=== PATIENT | female | born 1960 | race Caucasian/White ===

== ENCOUNTER 2021-04-25 11:47 | Emergency (ER) | payer MEDICAID ==
[~2021-04-25] VITALS: Ht 160 cm; Wt 57.3 kg
[2021-04-25 12:22] VITALS: BP 146/81
--- NOTE | 2021-04-25 14:53 | NUR ---
Pt escorted to RAP area #1. Provider is present.
[2021-04-25] MEDS ORDERED: normal saline 1000ML IV soln IVB ONE (15:05)
[2021-04-25] MEDS ORDERED: ondansetron/PF 4mg/2ml inj IV ONE (15:05)
[2021-04-25] MEDS ORDERED: morphine 2 MG/ML inj. syringe IV ONE (15:05)
[2021-04-25] MEDS ORDERED: AMOX-580 PO (15:50)
[2021-04-25] MEDS ORDERED: BUPR150T8 PO (15:50)
[2021-04-25] MEDS ORDERED: VENL150T3 PO (15:50)
[2021-04-25] MEDS ORDERED: LEVO25TA2 PO (15:50)
[2021-04-25 15:57] LABS: BASOPHILS # (AUTO) 0.1 X10'3 (0-0.2); BASOPHILS % (AUTO) 0.6 % (0-1); EOSINOPHILS % (AUTO) 0.1 % (0-6); HEMATOCRIT 39.9 % (35.0-45.0); HEMOGLOBIN 13.7 g/dl (12.0-16.0); LYMPHOCYTES # (AUTO) 0.8 X10'3 (1.1-4.8); LYMPHOCYTES % (AUTO) 8.7 % (21-51); MEAN CORPUSCULAR HEMOGLOBIN 31.3 PG (27.0-31.0); MEAN CORPUSCULAR HGB CONC 34.4 g/dL (33.0-36.5); MEAN PLATELET VOLUME 9.4 FL (7.4-10.4); MONOCYTES # (AUTO) 0.4 X10'3 (0-0.9); MONOCYTES % (AUTO) 4.3 % (2-12); NEUTROPHILS # (AUTO) 8.3 X10'3 (1.8-7.7); NEUTROPHILS % (AUTO) 86.3 % (42-75); PLATELET COUNT 272 X10'3 (140-440); RED BLOOD COUNT 4.39 X10'6 (4.20-5.60); WHITE BLOOD COUNT 9.7 X10'3 (4.5-11.0)
[2021-04-25 16:15] LABS: ALANINE AMINOTRANSFERASE 32 U/L (12-78); ALBUMIN 3.8 G/DL (3.4-5.0); ALBUMIN/GLOBULIN RATIO 0.9 (1.1-1.5); ALKALINE PHOSPHATASE 197 IU/L (46-116); ANION GAP 12 (8-16); ASPARTATE AMINO TRANSFERASE 29 U/L (10-37); BILIRUBIN,TOTAL 0.4 MG/DL (0.1-1.0); BLOOD UREA NITROGEN 8 MG/DL (7-18); C-REACTIVE PROTEIN 0.55 MG/DL (0.0-0.5); CALCIUM 8.9 MG/DL (8.5-10.1); CHLORIDE 101 MMOL/L (99-107); GLUCOSE 102 MG/DL (70-104); POTASSIUM 4.3 MMOL/L (3.5-5.1); SODIUM 136 MMOL/L (135-145); TOTAL CARBON DIOXIDE 22.7 MMOL/L (24-32); TOTAL PROTEIN 7.9 G/DL (6.4-8.2); eGFR 74 ML/MIN
[2021-04-25] MEDS ORDERED: proCHLORperazine 10 MG/2 ml inj IV ONE (16:45)
[2021-04-25] MEDS ORDERED: diphenhydrAMINE 50 mg/ml inj IV ONE (16:45)
[2021-04-25] MEDS ORDERED: ketorolac trometh. 30mg/ml inj. IV ONE (16:50)
[2021-04-25] MEDS ORDERED: IBUP-1985 PO (17:03)
[2021-04-25] MEDS ORDERED: ACET325T59 PO (17:03)
[2021-04-25] MEDS ORDERED: ONDA8TAB13 PO (17:03)
--- NOTE | 2021-04-25 18:10 | NUR ---
Pt given and understands d/c instructions. IV d/c'd, catheter was intact. Ambulatory with a steady gait.
== END 2021-04-25 18:10 | disposition home or self-care (01) ==
LOC: ER 11:51
DX: R51.9 Headache, unspecified (principal); R07.89 Other chest pain; R11.0 Nausea; R06.02 Shortness of breath; Z79.2 Long term (current) use of antibiotics; Z79.899 Other long term (current) drug therapy
CPT/HCPCS: 36415; 70450; 80053; 84145; 85025; 86140; 96374; 96375; 99284; J0780; J1200; J1885; J2270; J2405; J7030

== ENCOUNTER 2021-04-27 06:04 | Emergency (ER) | payer MEDICAID ==
[~2021-04-27] VITALS: Ht 162.6 cm; Wt 56.8 kg
[~2021-04-27 06:04] MED LIST: ACET325T59 PO; AMOX-580 PO; BUPR150T8 PO; IBUP-1985 PO; LEVO25TA2 PO; ONDA8TAB13 PO; VENL150T3 PO
[2021-04-27] MEDS ORDERED: acetaminophen 325mg tablet PO ONE (06:40)
[2021-04-27] MEDS ORDERED: proCHLORperazine 10 MG/2 ml inj IV ONE (06:40)
[2021-04-27] MEDS ORDERED: SUMAtriptan succ. 6 MG/0.5ml vial SQ ONE (06:40)
[2021-04-27] MEDS ORDERED: normal saline 1000ml 1,000 ML IV ONE (06:40)
[2021-04-27] MEDS ORDERED: ketorolac tromethamine 15mg/ml inj. IV ONE (06:45)
[2021-04-27] MEDS ORDERED: iohexol 350MG/ML 100ml bottle IV ONE (07:08)
--- NOTE | 2021-04-27 07:37 | NUR ---
pt to ct.
[2021-04-27 07:58] VITALS: BP 156/79
[2021-04-27 08:20] LABS: BASOPHILS % (AUTO) 0.4 % (0-1); EOSINOPHILS % (AUTO) 0.1 % (0-6); HEMOGLOBIN 11.9 g/dl (12.0-16.0); LYMPHOCYTES # (AUTO) 0.7 X10'3 (1.1-4.8); LYMPHOCYTES % (AUTO) 6.8 % (21-51); MEAN CORPUSCULAR HEMOGLOBIN 31.1 PG (27.0-31.0); MEAN CORPUSCULAR VOLUME 91.5 FL (78-98); MEAN PLATELET VOLUME 8.8 FL (7.4-10.4); MONOCYTES # (AUTO) 0.8 X10'3 (0-0.9); MONOCYTES % (AUTO) 7.9 % (2-12); NEUTROPHILS # (AUTO) 8.9 X10'3 (1.8-7.7); NEUTROPHILS % (AUTO) 84.8 % (42-75); PLATELET COUNT 227 X10'3 (140-440); RED BLOOD COUNT 3.83 X10'6 (4.20-5.60); RED CELL DISTRIBUTION WIDTH 13.2 % (11.5-14.5); WHITE BLOOD COUNT 10.5 X10'3 (4.5-11.0)
[2021-04-27 08:27] LABS: CLARITY,URINE SLIGHTLY CLOUDY (Clear); GLUCOSE, URINE NEGATIVE (Neg); KETONES,URINE 40 mg/dl (Neg); LEUKOCYTE ESTERASE ,URINE NEGATIVE (Neg); NITRITES, URINE NEGATIVE (Neg); OCCULT BLOOD,URINE TRACE-INTACT (Neg); PH,URINE 6.5 (4.8-8.0); PROTEIN,URINE NEGATIVE (Neg); UROBILINOGEN,URINE 0.2 E.U/dL (0.2-1.0)
[2021-04-27 08:38] LABS: ALANINE AMINOTRANSFERASE 28 U/L (12-78); ALKALINE PHOSPHATASE 168 IU/L (46-116); ANION GAP 14 (8-16); ASPARTATE AMINO TRANSFERASE 25 U/L (10-37); BILIRUBIN,TOTAL 0.4 MG/DL (0.1-1.0); BLOOD UREA NITROGEN 11 MG/DL (7-18); BUN/CREATININE RATIO 13.1 (6.6-38.0); CALCIUM 7.7 MG/DL (8.5-10.1); CHLORIDE 100 MMOL/L (99-107); CREATININE 0.84 MG/DL (0.40-0.90); ETHANOL < 0.010 GM/DL (0.0-0.010); GLUCOSE 107 MG/DL (70-104); POTASSIUM 3.4 MMOL/L (3.5-5.1); SODIUM 133 MMOL/L (135-145); TOTAL CARBON DIOXIDE 18.6 MMOL/L (24-32); eGFR 70 ML/MIN
[2021-04-27 08:39] LABS: URINE AMPHETAMINE SCREEN NEGATIVE (Neg); URINE BARBITUATE SCREEN NEGATIVE (Neg); URINE BENZODIAZEPINES SCREEN NEGATIVE (Neg); URINE CANNABINOID SCREEN NEGATIVE (Neg); URINE COCAINE SCREEN NEGATIVE (Neg); URINE METHADONE SCREEN NEGATIVE (Neg); URINE OPIATE SCREEN NEGATIVE (Neg); URINE PHENCYCLIDINE SCREEN NEGATIVE (Neg)
[2021-04-27 08:44] LABS: COLOR,URINE STRAW (Yellow); UA COLLECTION TYPE CLN CATCH MIDSTREAM
[2021-04-27 08:46] LABS: MUCUS STRANDS FEW /LPF (Neg); SQUAMOUS EPITHELIAL CELL,UR MODERATE /LPF (FEW)
[2021-04-27 08:47] LABS: BACTERIA,URINE FEW /HPF (Neg); RBC,URINE 0-2 /HPF (0-2); WBC,URINE 0-4 /HPF (0-4)
[2021-04-27] MEDS ORDERED: LORazepam 2 mg/ml vial IV ONE (08:50)
[2021-04-27] MEDS ORDERED: METO-292 PO (09:47)
[2021-04-27 09:51] LABS: PLATELET ESTIMATE NORMAL; TOTAL CELLS COUNTED 100
== END 2021-04-27 10:14 | disposition home or self-care (01) ==
LOC: ER 06:05
DX: R51.9 Headache, unspecified (principal); F41.9 Anxiety disorder, unspecified; Z79.2 Long term (current) use of antibiotics; Z79.899 Other long term (current) drug therapy
CPT/HCPCS: 36415; 70496; 80053; 80305; 80320; 81001; 85007; 85025; 85651; 96361; 96372; 96374; 96375; 99285; J0780; J2060; J3030; J7030; Q9967

== ENCOUNTER 2021-04-28 11:16 | Emergency (ER) | payer MEDICAID ==
[~2021-04-28] VITALS: Ht 162.6 cm; Wt 56.8 kg
[~2021-04-28 11:16] MED LIST changes: +METO-292 PO
[2021-04-28 13:42] LABS: BASOPHILS % (AUTO) 0.3 % (0-1); EOSINOPHILS % (AUTO) 0.1 % (0-6); HEMATOCRIT 36.8 % (35.0-45.0); HEMOGLOBIN 12.5 g/dl (12.0-16.0); LYMPHOCYTES # (AUTO) 0.8 X10'3 (1.1-4.8); LYMPHOCYTES % (AUTO) 6.9 % (21-51); MEAN CORPUSCULAR HEMOGLOBIN 30.6 PG (27.0-31.0); MEAN CORPUSCULAR HGB CONC 33.9 g/dL (33.0-36.5); MEAN CORPUSCULAR VOLUME 90.3 FL (78-98); MONOCYTES # (AUTO) 0.9 X10'3 (0-0.9); NEUTROPHILS # (AUTO) 10.4 X10'3 (1.8-7.7); NEUTROPHILS % (AUTO) 85.7 % (42-75); PLATELET COUNT 282 X10'3 (140-440); RED BLOOD COUNT 4.08 X10'6 (4.20-5.60); WHITE BLOOD COUNT 12.1 X10'3 (4.5-11.0)
[2021-04-28 13:52] LABS: ALANINE AMINOTRANSFERASE 31 U/L (12-78); ALBUMIN 3.6 G/DL (3.4-5.0); ALKALINE PHOSPHATASE 212 IU/L (46-116); ANION GAP 13 (8-16); ASPARTATE AMINO TRANSFERASE 25 U/L (10-37); BILIRUBIN,TOTAL 0.5 MG/DL (0.1-1.0); BLOOD UREA NITROGEN 8 MG/DL (7-18); BUN/CREATININE RATIO 10.8 (6.6-38.0); CALCIUM 8.4 MG/DL (8.5-10.1); CHLORIDE 91 MMOL/L (99-107); CREATININE 0.74 MG/DL (0.40-0.90); ETHANOL < 0.010 GM/DL (0.0-0.010); GLUCOSE 108 MG/DL (70-104); SODIUM 126 MMOL/L (135-145); TOTAL CARBON DIOXIDE 22.3 MMOL/L (24-32); TOTAL PROTEIN 7.2 G/DL (6.4-8.2); eGFR 81 ML/MIN
[2021-04-28 13:56] LABS: POTASSIUM 2.9 MMOL/L (3.5-5.1)
[2021-04-28] MEDS ORDERED: CefTRIAXone 2gm/D5W 50ml BAG 50 ML IV ONE (14:20)
[2021-04-28] MEDS ORDERED: ampicillin inj 2 GM in normal saline 100ml IV soln 100 ML IV ONE (14:20)
[2021-04-28] MEDS ORDERED: dexamethasone sod phosphate 10mg/ml inj IV STA (14:20)
[2021-04-28] MEDS ORDERED: acetaminophen 325mg tablet PO ONE ×2 (14:30→22:25)
[2021-04-28 14:32] LABS: GLUCOSE,CSF 32 MG/DL (40-75); TOTAL PROTEIN,CSF 45 MG/DL (15-45)
[2021-04-28] MEDS ORDERED: potassium Cl 10 mEq/100mL bag IV ONE (14:45)
[2021-04-28] MEDS ORDERED: normal saline 1000ML IV soln IVB ONE (14:45)
[2021-04-28 15:18] LABS: CSF SUPERNATANT COLOR COLORLESS
[2021-04-28 15:19] LABS: CSF RBC 0 /CU MM (0); CSF VOLUME 9.5 ML; TUBE# COUNTED 1
[2021-04-28 15:22] LABS: APPEARANCE,CSF HAZY; CSF RBC 0 /CU MM (0); CSF SUPERNATANT COLOR COLORLESS; CSF VOLUME 9.5 ML; TUBE# COUNTED 4
[2021-04-28 15:25] LABS: CSF WBC CT 158 /CU MM (0-5)
[2021-04-28 15:26] LABS: APPEARANCE,CSF CLOUDY; CSF WBC CT 161 /CU MM (0-5)
[2021-04-28 15:47] LABS: LYMPHOCYTES,CSF 4 % (40-80); MONOCYTES,CSF 2 % (15-45)
[2021-04-28 15:51] LABS: LYMPHOCYTES,CSF 8 % (40-80); MONOCYTES,CSF 4 % (15-45); NEUTRO,CSF 5 % (0-6)
[2021-04-28 16:15] LABS: PLATELET ESTIMATE NORMAL; TOTAL CELLS COUNTED 100
[2021-04-28 17:07] LABS: URINE HCG NEGATIVE (NEG)
[2021-04-28 17:09] LABS: CLARITY,URINE CLEAR (Clear); COLOR,URINE YELLOW (Yellow); GLUCOSE, URINE NEGATIVE (Neg); KETONES,URINE 40 mg/dl (Neg); LEUKOCYTE ESTERASE ,URINE NEGATIVE (Neg); NITRITES, URINE NEGATIVE (Neg); OCCULT BLOOD,URINE NEGATIVE (Neg); PROTEIN,URINE NEGATIVE (Neg); UROBILINOGEN,URINE 0.2 E.U/dL (0.2-1.0)
[2021-04-28 17:20] LABS: UA COLLECTION TYPE CLN CATCH MIDSTREAM
[2021-04-28 17:22] LABS: URINE AMPHETAMINE SCREEN NEGATIVE (Neg); URINE BARBITUATE SCREEN NEGATIVE (Neg); URINE BENZODIAZEPINES SCREEN NEGATIVE (Neg); URINE CANNABINOID SCREEN POSITIVE (Neg); URINE COCAINE SCREEN NEGATIVE (Neg); URINE METHADONE SCREEN NEGATIVE (Neg); URINE OPIATE SCREEN NEGATIVE (Neg); URINE PHENCYCLIDINE SCREEN NEGATIVE (Neg)
[2021-04-28] MEDS: potassium Cl 10 mEq/100mL bag IV SCH ×2 (18:10→19:24)
[2021-04-28] MEDS ORDERED: diphenhydrAMINE 50 mg/ml inj IV ONE (22:25)
[2021-04-28] MEDS: ampicillin inj 1 GM in normal saline 100ml IV soln 100 ML IV SCH (23:05)
[2021-04-28] MEDS ORDERED: potassium Cl 20 mEq SR tablet PO STA (23:51)
[2021-04-29] MEDS ORDERED: ketorolac trometh. 30mg/ml inj. IV ONE
[2021-04-29] MEDS ORDERED: metoclopramide 5 mg/ml inj IV ONE
[2021-04-29] MEDS ORDERED: morphine 4 MG/ML inj SYRINge IV ONE ×5 (01:20→23:20)
[2021-04-29] MEDS: NORMAL SALINE IV SCH ×3 (01:50→17:48)
[2021-04-29] MEDS: ACYCLOVIR IV SCH ×3 (01:50→17:48)
[2021-04-29] MEDS ORDERED: LORazepam 2 mg/ml vial IV ONE (01:55)
[2021-04-29] MEDS: acetaZOLAMIDE IV 500mg inj IV SCH ×2 (03:52→07:05)
[2021-04-29] MEDS: ampicillin inj 1 GM in normal saline 100ml IV soln 100 ML IV SCH ×3 (04:26→09:00)
[2021-04-29] MEDS: CefTRIAXone 2gm/D5W 50ml IV SCH ×2 (05:01→15:46)
--- NOTE | 2021-04-29 05:26 | NUR ---
pt refused to wear gown. given extra blankets, no s/s of distress.
[2021-04-29 06:14] LABS: BASOPHILS % (AUTO) 0.1 % (0-1); EOSINOPHILS % (AUTO) 0 % (0-6); HEMATOCRIT 32.7 % (35.0-45.0); HEMOGLOBIN 11.3 g/dl (12.0-16.0); LYMPHOCYTES # (AUTO) 0.8 X10'3 (1.1-4.8); LYMPHOCYTES % (AUTO) 6.9 % (21-51); MEAN CORPUSCULAR HEMOGLOBIN 31.2 PG (27.0-31.0); MEAN CORPUSCULAR HGB CONC 34.5 g/dL (33.0-36.5); MEAN CORPUSCULAR VOLUME 90.4 FL (78-98); MONOCYTES # (AUTO) 1.3 X10'3 (0-0.9); NEUTROPHILS # (AUTO) 9.9 X10'3 (1.8-7.7); PLATELET COUNT 289 X10'3 (140-440); RED BLOOD COUNT 3.62 X10'6 (4.20-5.60); RED CELL DISTRIBUTION WIDTH 12.8 % (11.5-14.5)
[2021-04-29 06:23] LABS: GLUCOSE 111 MG/DL (70-104); SODIUM 133 MMOL/L (135-145)
[2021-04-29 06:24] LABS: ALANINE AMINOTRANSFERASE 29 U/L (12-78); ALBUMIN 3.2 G/DL (3.4-5.0); ALBUMIN/GLOBULIN RATIO 1.1 (1.1-1.5); ALKALINE PHOSPHATASE 213 IU/L (46-116); ANION GAP 13 (8-16); ASPARTATE AMINO TRANSFERASE 19 U/L (10-37); BILIRUBIN,TOTAL 0.2 MG/DL (0.1-1.0); BLOOD UREA NITROGEN 9 MG/DL (7-18); BUN/CREATININE RATIO 11.3 (6.6-38.0); CHLORIDE 100 MMOL/L (99-107); MAGNESIUM 2.1 MG/DL (1.5-2.4); TOTAL CARBON DIOXIDE 20.4 MMOL/L (24-32); TOTAL PROTEIN 6.2 G/DL (6.4-8.2); eGFR 74 ML/MIN
[2021-04-29 06:26] LABS: POTASSIUM 2.7 MMOL/L (3.5-5.1)
--- NOTE | 2021-04-29 07:03 | NUR ---
spoke to nicole/pharmacist and informed that pt recived acetazolamide earlier today ,as per nicole nonadmin as pt recived it earlier.
[2021-04-29] MEDS: LORazepam 2 mg/ml vial IV PRN (07:57)
--- NOTE | 2021-04-29 09:30 | NUR ---
spoke to dr charles regarding pt ampicillin dose and frequency ,informed that pt is getting ampicillin q3 hr .as per md just give 1 dose for today and cancel rest of ampicillin.
--- NOTE | 2021-04-29 10:00 | NUR ---
checked pt morning lab and saw pt low pottassium value ,critical value k+was not communicated to me by the rn who took the critical lab value call , was not aware either ,will notify dr charles.
[2021-04-29] MEDS ORDERED: potassium Cl 20 mEq SR tablet PO ONE (10:10)
[2021-04-29] MEDS: magnesium 2GM in 50ml NS 50 ML IV SCH ×2 (10:25→13:01)
[2021-04-29] MEDS: potassium CL 10mEq/100ml bag 100 ML IV SCH ×2 (10:27→11:53)
--- NOTE | 2021-04-29 12:00 | NUR ---
notified dr charles that pt is requesting for morphine for headache .verbal order for morphine 4 mg iv once .
--- NOTE | 2021-04-29 12:22 | NUR ---
pt refused the morphine at this time, stated we will wait for meds.returned the morphine .
[2021-04-29] MEDS: vancomycin/NS 1 GM ADD-VANTAGE 250 ML IV SCH (13:40)
--- NOTE | 2021-04-29 15:39 | NUR ---
SPOKE TO DR SOLIS AND INFORMED THAT PT K= WAS LOW THIS AM AN DSHE RECIVED POTTASIUM IF WE CAN REPEAT THE K+ LEVEL . PER DO BMP.
[2021-04-29 16:14] LABS: ALBUMIN 3.3 G/DL (3.4-5.0); ANION GAP 11 (8-16); BLOOD UREA NITROGEN 9 MG/DL (7-18); BUN/CREATININE RATIO 12.3 (6.6-38.0); CALCIUM 7.6 MG/DL (8.5-10.1); CHLORIDE 103 MMOL/L (99-107); CREATININE 0.73 MG/DL (0.40-0.90); GLUCOSE 105 MG/DL (70-104); POTASSIUM 3.2 MMOL/L (3.5-5.1); SODIUM 133 MMOL/L (135-145); TOTAL CARBON DIOXIDE 19.2 MMOL/L (24-32); eGFR 82 ML/MIN
[2021-04-29 16:38] LABS: HIV ANTIBODY 1&2 RAPID NON-REACTIVE (Neg)
[2021-04-29] MEDS: ampicillin inj 2 GM in normal saline 100ml IV soln 100 ML IV SCH ×3 (18:22→23:56)
--- NOTE | 2021-04-29 18:33 | NUR ---
pt ampicillin 1 gm iv @ 200 ml/hr stopped at this time as per geoff/pharmacist she spoke to dr condon and he want 2gm instead of 1 gm fernando she will send ampicillin 2 gm and notified dash gold the primary nurse .
[2021-04-30] MEDS: vancomycin/NS 1 GM ADD-VANTAGE 250 ML IV SCH (00:59)
[2021-04-30] MEDS: ACYCLOVIR IV SCH ×3 (03:51→17:00)
[2021-04-30] MEDS: NORMAL SALINE IV SCH ×3 (03:51→17:00)
[2021-04-30] MEDS: CefTRIAXone 2gm/D5W 50ml IV SCH ×3 (04:58→16:21)
[2021-04-30] MEDS: ampicillin inj 2 GM in normal saline 100ml IV soln 100 ML IV SCH ×5 (05:24→22:02)
[2021-04-30] MEDS: acetaZOLAMIDE IV 500mg inj IV SCH (08:03)
[2021-04-30 09:07] LABS: BASOPHILS % (AUTO) 0.1 % (0-1); EOSINOPHILS % (AUTO) 0 % (0-6); HEMATOCRIT 42.5 % (35.0-45.0); LYMPHOCYTES # (AUTO) 1.2 X10'3 (1.1-4.8); LYMPHOCYTES % (AUTO) 6.9 % (21-51); MEAN CORPUSCULAR HEMOGLOBIN 30.9 PG (27.0-31.0); MEAN CORPUSCULAR VOLUME 93.7 FL (78-98); MEAN PLATELET VOLUME 8.8 FL (7.4-10.4); MONOCYTES # (AUTO) 1.4 X10'3 (0-0.9); MONOCYTES % (AUTO) 8.2 % (2-12); NEUTROPHILS # (AUTO) 14.5 X10'3 (1.8-7.7); NEUTROPHILS % (AUTO) 84.8 % (42-75); PLATELET COUNT 326 X10'3 (140-440); RED BLOOD COUNT 4.53 X10'6 (4.20-5.60); RED CELL DISTRIBUTION WIDTH 13.4 % (11.5-14.5); WHITE BLOOD COUNT 17.1 X10'3 (4.5-11.0)
--- NOTE | 2021-04-30 09:30 | NUR ---
BREAKFAST TRAY GIVEN TO PT
[2021-04-30] MEDS: morphine 4 MG/ML inj SYRINge IV PRN ×3 (10:50→19:35)
[2021-04-30 10:51] LABS: PLATELET ESTIMATE NORMAL; TOTAL CELLS COUNTED 100
[2021-04-30 10:53] LABS: ALANINE AMINOTRANSFERASE 37 U/L (12-78); ALBUMIN 3.7 G/DL (3.4-5.0); ALKALINE PHOSPHATASE 332 IU/L (46-116); ANION GAP 13 (8-16); ASPARTATE AMINO TRANSFERASE 30 U/L (10-37); BILIRUBIN,TOTAL 0.3 MG/DL (0.1-1.0); BLOOD UREA NITROGEN 8 MG/DL (7-18); BUN/CREATININE RATIO 9.8 (6.6-38.0); CALCIUM 8.4 MG/DL (8.5-10.1); CHLORIDE 99 MMOL/L (99-107); CREATININE 0.82 MG/DL (0.40-0.90); GLUCOSE 104 MG/DL (70-104); SODIUM 132 MMOL/L (135-145); TOTAL CARBON DIOXIDE 19.9 MMOL/L (24-32); TOTAL PROTEIN 7.4 G/DL (6.4-8.2); eGFR 72 ML/MIN
[2021-04-30 11:01] LABS: POTASSIUM 2.6 MMOL/L (3.5-5.1)
[2021-04-30] MEDS ORDERED: potassium Cl 20 mEq SR tablet PO ONE (11:10)
[2021-04-30] MEDS ORDERED: LIDOcaine 1% 30ml preserv. free vial IJ ONE (11:10)
--- NOTE | 2021-04-30 12:00 | NUR ---
LP performed at bedside by Dr. Weiner
[2021-04-30] MEDS: potassium CL 10mEq/100ml bag 100 ML IV SCH ×2 (12:10→12:40)
[2021-04-30] MEDS: magnesium 2GM in 50ml NS 50 ML IV SCH ×2 (12:10→12:40)
[2021-04-30] MEDS ORDERED: VANCOMYCIN LEVEL IV ONE (12:30)
--- NOTE | 2021-04-30 12:51 | NUR ---
CHECKED ON BED ASSIGNMENT [facility]. STILL NO BED ASSIGNMENT
[2021-04-30 13:11] LABS: GLUCOSE,CSF 41 MG/DL (40-75); TOTAL PROTEIN,CSF 57 MG/DL (15-45)
[2021-04-30 13:26] LABS: LYMPHOCYTES,CSF 5 % (40-80); NEUTRO,CSF 1 % (0-6)
[2021-04-30 13:28] LABS: APPEARANCE,CSF CLEAR; LYMPHOCYTES,CSF 5 % (40-80)
[2021-04-30 13:29] LABS: CSF SUPERNATANT COLOR COLORLESS; CSF VOLUME 19 ML; TUBE# COUNTED 1
[2021-04-30 13:32] LABS: CSF RBC 105 /CU MM (0); CSF WBC CT 158 /CU MM (0-5)
[2021-04-30 13:33] LABS: APPEARANCE,CSF CLEAR; CSF SUPERNATANT COLOR COLORLESS; CSF VOLUME 19 ML; TUBE# COUNTED 4
[2021-04-30 13:34] LABS: CSF RBC 41 /CU MM (0); CSF WBC CT 156 /CU MM (0-5)
[2021-04-30] MEDS: VANCOmycin 1250MG/NS 250ml Bag 250 ML IV SCH (14:20)
--- NOTE | 2021-04-30 16:10 | NUR ---
Patient's states patient had cellulitis in right axial area last month and was treated with antibiotics. Patient's RN notified.
[2021-04-30] MEDS ORDERED: glycopyrrolate 1mg tablet PO SCH (17:00)
[2021-04-30] MEDS: LORazepam 2 mg/ml vial IV PRN ×2 (19:37→23:45)
[2021-04-30] MEDS ORDERED: lactobacillus rhamnosus 10,000 MMU CELLS/CAPSULE PO SCH (20:00)
[2021-04-30] MEDS ORDERED: morphine 4 MG/ML inj SYRINge IV ONE (22:00)
--- NOTE | 2021-04-30 22:48 | NUR ---
PATIENT HAD AN INCOMPLETE TELE NEURO WORKUP DONE ON 04/28/2021 PATIENT'S LP RESULTS WERE PENDING. DR. MARINELLI IS REQUESTING THIS TELE NEURO ASSESSMENT BE COMPLETED. TELE NEURO PAGED FOR CONSULT.
--- NOTE | 2021-05-01 00:42 | NUR ---
SPOKE W/ DR PEREZ RE: PATIENT'S BP 177/105, AWAITING ORDERS AT THIS TIME.
[2021-05-01] MEDS: ampicillin inj 2 GM in normal saline 100ml IV soln 100 ML IV SCH (01:17)
[2021-05-01] MEDS: NORMAL SALINE IV SCH (01:45)
[2021-05-01] MEDS: ACYCLOVIR IV SCH (01:45)
--- NOTE | 2021-05-01 01:59 | NUR ---
PATIENT ACCEPTED TO [facility]
[2021-05-01] MEDS: morphine 4 MG/ML inj SYRINge IV PRN (02:09)
[2021-05-01] MEDS ORDERED: LORazepam 2 mg/ml vial IV ONE (02:45)
[2021-05-01] MEDS: VANCOmycin 1250MG/NS 250ml Bag 250 ML IV SCH (03:06)
[2021-05-01 04:21] VITALS: BP 182/104
[2021-05-02] MEDS ORDERED: VANCOMYCIN LEVEL IV ONE (01:30)
[2021-05-03 12:55] LABS: IMMUNOGLOBULIN G, QN, SERUM 931 mg/dL (586-1602)
[2021-05-03 19:32] LABS: CRYPTOCOCCUS ANTIGEN, CSF Negative (Negative)
[2021-05-04 14:41] LABS: LYME IGG P23 AB Absent (.); LYME IGG P28 AB Absent (.); LYME IGG P30 AB Absent (.); LYME IGG P41 AB Absent (.); LYME IGG P45 AB Absent (.); LYME IGG P58 AB Absent (.); LYME IGG P66 AB Absent (.); LYME IGG P93 AB Absent (.); LYME IGG WB INTERP Negative (.); LYME IGM P23 AB Absent (.); LYME IGM P39 AB Absent (.); LYME IGM P41 AB Absent (.); LYME IGM WB INTERP Negative (.); VDRL, CSF Non Reactive (Non Rea:<1:1)
[2021-05-06 16:54] LABS: IMMUNOGLOBULIN G, QN CSF 2.5 mg/dL (0.0-6.7)
== END 2021-05-01 04:24 | disposition short-term general hospital (02) ==
LOC: ER 11:16
DX: G93.2 Benign intracranial hypertension (principal); Z20.822 Contact with and (suspected) exposure to COVID-19; G43.909 Migraine, unspecified, not intractable, without status migrainosus; E87.1 Hypo-osmolality and hyponatremia; E87.6 Hypokalemia; F12.90 Cannabis use, unspecified, uncomplicated; Z79.2 Long term (current) use of antibiotics; Z79.899 Other long term (current) drug therapy
CPT/HCPCS: 36415; 62270; 70551; 71045; 80048; 80053; 80202; 80305; 80320; 81003; 81025; 82040; 82042; 82140; 82784; 82945; 83605; 83735; 83873; 83916; 84132; 84145; 84157; 85007; 85025; 86592; 86617; 86703; 86788; 86789; 87015; 87040; 87070; 87210; 87502; 87503; 87529; 87635; 87899; 89051; 96365; 96366; 96367; 96368; 96375; 96376; 99285; C9803; J0133; J0290; J0696; J1100; J1120; J1200; J1885; J2060; J2270; J2765; J3370; J3475; J3480; J3490; J7030; J7050